=== PATIENT | female | born 1965 | race Caucasian/White ===

== ENCOUNTER 2017-04-21 14:45 | Emergency (ER) | payer SELFPAY ==
[~2017-04-21] VITALS: Ht 160 cm; Wt 68.5 kg
[~2017-04-21 14:45] MED LIST: DENIES; PRED20TA PO
[2017-04-21 14:54] VITALS: Ht 160 cm; Wt 68.5 kg
[2017-04-21 15:23] VITALS: BP 139/72
[2017-04-21 16:04] LABS: BASOPHILS % 0.6 % (0.0-2.0); EOSINOPHILS # 0.1 10^3/ul (0.0-0.5); EOSINOPHILS % 1.4 % (0.0-7.0); HEMATOCRIT 37.4 % (37.0-47.0); LYMPHOCYTES # 2.1 10^3/ul (0.8-2.9); MEAN CORPUSCULAR HEMOGLOBIN 26.4 pg (29.0-33.0); MEAN CORPUSCULAR HGB CONC 32.1 g/dl (32.0-37.0); MEAN CORPUSCULAR VOLUME 82.2 fl (82.0-101.0); MONOCYTE # 0.4 10^3/ul (0.3-0.9); MONOCYTES % 5.9 % (0.0-11.0); NEUTROPHIL # 4.6 10^3/ul (1.6-7.5); PLATELET COUNT 333 10^3/UL (140-415); RED BLOOD COUNT 4.55 10^6/ul (4.20-5.40); RED CELL DISTRIBUTION WIDTH 14.9 % (11.5-14.5); WHITE BLOOD COUNT 7.3 10^3/ul (4.8-10.8)
--- NOTE | 2017-04-21 16:17 | RADRPT ---
PROCEDURE: US Pelvis. CLINICAL INDICATION: Heavy vaginal bleeding. Lower pelvic pain. TECHNIQUE: The pelvis was evaluated with transabdominal sonography in the axial and sagittal plane s. COMPARISON: No prior study is available for comparison. FINDINGS: Uterus: 9.7 x 5.8 x 7.3 cm. Endometrium: 11.8 mm. Right ovary: 2.4 x 1.2 x 1.6 cm. Left ovary: 4.9 x 4.3 x 4.0 cm. Uterine masses: Multiple fibroids are present in the uterus with the largest measuring 2.5 cm in max imal diameter. Ovarian masses: The right ovary is normal. There is a left ovarian cyst measuring 4.3 x 3.4 x 3.3 cm . There are no internal echoes or septations. Color Doppler and pulsed Doppler sonography demonstrat e normal flow to the ovaries. Other pelvic masses: None. Free fluid: None. IMPRESSION: 1. Fibroids in the uterus with the largest measuring 2.5 cm. 2. Left ovarian cyst measuring 4.3 cm in maximal dimension, probably benign. Follow-up ultrasound i n 3 months is advised. 3. Otherwise unremarkable study. RPTAT: QQ .Zaire Rodríguez MD, MD Date Time Electronically viewed and signed by .Zaire Rodríguez MD, on 04/21/2017 16:17 .R/
[2017-04-21 16:20] LABS: ADD UMIC YES; UR ASCORBIC ACID NEGATIVE (NEGATIVE); UR BILIRUBIN (Dip) NEGATIVE (NEGATIVE); UR BLOOD (Dip) 3+ mg/dL (NEGATIVE); UR CLARITY SLIGHTLY CLOUDY (CLEAR); UR COLOR RED (YELLOW); UR GLUCOSE (Dip) NEGATIVE (NEGATIVE); UR KETONES (Dip) NEGATIVE (NEGATIVE); UR LEUKOCYTE ESTERASE (Dip) NEGATIVE Leu/ul (NEGATIVE); UR NITRITE (Dip) NEGATIVE (NEGATIVE); UR RBC > 182 /HPF (0-5); UR SPECIFIC GRAVITY (Dip) 1.009 (1.003-1.030); UR TOTAL PROTEIN (Dip) 1+ mg/dl (NEGATIVE); UR UROBILINOGEN (Dip) NEGATIVE (NEGATIVE)
[2017-04-21 16:20] LABS: ALBUMIN 4.3 g/dl (3.3-4.9); ALBUMIN/GLOBULIN RATIO 1.3; BILIRUBIN,INDIRECT 0.1 mg/dl (0-1.1); BILIRUBIN,TOTAL 0.1 mg/dl (0.2-1.3); CALCIUM 9.1 mg/dl (8.4-10.2); CREATININE 0.82 mg/dl (0.44-1.00); POTASSIUM 4.1 mmol/L (3.5-5.1); TOTAL PROTEIN 7.6 g/dl (6.1-8.1)
[2017-04-21] MEDS ORDERED: MEDR10TA2 PO (17:19)
--- NOTE | 2017-04-21 17:35 | ERD ---
ER Documentation Chief Complaint Date/Time DATE: 04/21/17 TIME: 17:32 Chief Complaint Pt presents with VB X 6 days. Not . HPI 51-year-old female patient with a past medical history of fibroids and hypertension presents to the ED complaining of vaginal bleeding that started 6 days ago. Her menstruation started 6 days ago and was minimal however started to have more vaginal bleeding with clots. Denies any pelvic pain, nausea, vomiting, diarrhea, chest pain, shortness of breath, wheezing, dizziness, headache, weakness. Denies any smoking, alcohol use, drug use. Denies any dysuria, urgency, frequency. ROS All systems reviewed and are negative except as per history of present illness. Medications Home Meds Active Scripts Medroxyprogesterone Acetate* (Provera*) 10 Mg Tablet, 10 MG PO DAILY, #5 TAB Prov:POOJA SADLER PA-C 04/21/17 Prednisone* (Prednisone*) 20 Mg Tab, 60 MG PO DAILY for 5 Days, TAB Prov:MARCUS KRAMER MD 12/18/15 Reported Medications [Denies] No Conflict Check 01/14/10 Allergies Allergies: Coded Allergies: No Known Drug Allergies (Verified Allergy, Mild, 01/14/10) PMhx/Soc History of Surgery: Yes (TUBAL LIGATION) Anesthesia Reaction: No Hx Neurological Disorder: No Hx Respiratory Disorders: No Hx Cardiac Disorders: Yes (HTN) Hx Psychiatric Problems: No Hx Miscellaneous Medical Probl: No Hx Alcohol Use: No Hx Substance Use: No Hx Tobacco Use: No Smoking Status: Never smoker Physical Exam Vitals Vital Signs Date Time Temp Pulse Resp B/P Pulse Ox O2 Delivery O2 Flow Rate FiO2 04/21/17 15:23 139/72 04/21/17 14:54 98.0 78 18 184/111 98 Physical Exam Const: [id number], well-nourished. In no acute distress. Head: Atraumatic, normocephalic Eyes: Normal Conjunctiva without injection. No purulent discharge. ENT: Normal external ear, nose. Moist oropharynx without tonsillar exudates. Non -erythematous pharynx. Uvula midline. No drooling. No trismus. Neck: No cervical midline tenderness. Full range of motion. No meningismus. No cervical lymphadenopathy. No JVD. Resp: Clear to auscultation bilaterally. No wheezing, rhonchi, rales, or crackles. No accessory muscle use. No retractions. Cardio: Regular rate and rhythm. No murmurs, rubs or gallops. Abd: Soft, nontender, non distended. Normal bowel sounds. No palpable masses. No rebound tenderness. No guarding. Negative McBurney's point. Negative psoas sign. Negative obturator sign. Skin: No petechiae or rashes Back: No midline tenderness. No CVA tenderness. Ext: No cyanosis, or edema. Neur: Awake and alert. Normal gait. Normal coordination. Psych: Normal Mood and Affect Result Diagram: 04/21/17 1550 04/21/17 1550 Results 24 hrs Laboratory Tests Test 04/21/17 15:50 04/21/17 15:59 White Blood Count 7.310^3/ul Red Blood Count 4.5510^6/ul Hemoglobin 12.0g/dl Hematocrit 37.4% Mean Corpuscular Volume 82.2fl Mean Corpuscular Hemoglobin 26.4pg Mean Corpuscular Hemoglobin Concent 32.1g/dl Red Cell Distribution Width 14.9% Platelet Count 94364^3/UL Mean Platelet Volume 10.0fl Neutrophils % 63.0% Lymphocytes % 29.0% Monocytes % 5.9% Eosinophils % 1.4% Basophils % 0.6% Nucleated Red Blood Cells % 0.0/100WBC Neutrophils # 4.610^3/ul Lymphocytes # 2.110^3/ul Monocytes # 0.410^3/ul Eosinophils # 0.110^3/ul Basophils # 0.010^3/ul Nucleated Red Blood Cells # 0.010^3/ul Sodium Level 140mmol/L Potassium Level 4.1mmol/L Chloride Level 106mmol/L Carbon Dioxide Level 26mmol/L Anion Gap 12 Blood Urea Nitrogen 14mg/dl Creatinine 0.82mg/dl Glucose Level 92mg/dl Calcium Level 9.1mg/dl Total Bilirubin 0.1mg/dl Direct Bilirubin 0.00mg/dl Indirect Bilirubin 0.1mg/dl Aspartate Amino Transf (AST/SGOT) 19IU/L Alanine Aminotransferase (ALT/SGPT) 29IU/L Alkaline Phosphatase 61IU/L Total Protein 7.6g/dl Albumin 4.3g/dl Globulin 3.30g/dl Albumin/Globulin Ratio 1.30 Urine Color RED Urine Clarity SLIGHTLY CLOUDY Urine pH 7.0 Urine Specific [place] 1.009 Urine Ketones NEGATIVEmg/dL Urine Nitrite NEGATIVEmg/dL Urine Bilirubin NEGATIVEmg/dL Urine Urobilinogen NEGATIVEmg/dL Urine Leukocyte Esterase NEGATIVELeu/ul Urine Microscopic RBC > 182/HPF Urine Microscopic WBC 5/HPF Urine Hemoglobin 3+mg/dL Urine Glucose NEGATIVEmg/dL Urine Total Protein 1+mg/dl Procedures/MDM 51-year-old female patient with no significant past medical history presents to the ED complaining of vaginal bleeding that started 6 days ago. Patient is afebrile and nontoxic-appearing. Patient's blood pressure was 184/111 at triage and was retaken to be 139/72. Patient's blood pressure was elevated (> 120/80) but appears stable without evidence of hypertension emergency or urgency. The patient was counseled about the risks of hypertension and urged to pursue outpatient monitoring and therapy within a week with their primary care physician. PROCEDURE: US Pelvis. CLINICAL INDICATION: Heavy vaginal bleeding. Lower pelvic pain. TECHNIQUE: The pelvis was evaluated with transabdominal sonography in the axial and sagittal planes. COMPARISON: No prior study is available for comparison. FINDINGS: Uterus: 9.7 x 5.8 x 7.3 cm. Endometrium: 11.8 mm. Right ovary: 2.4 x 1.2 x 1.6 cm. Left ovary: 4.9 x 4.3 x 4.0 cm. Uterine masses: Multiple fibroids are present in the uterus with the largest measuring 2.5 cm in maximal diameter. Ovarian masses: The right ovary is normal. There is a left ovarian cyst measuring 4.3 x 3.4 x 3.3 cm. There are no internal echoes or septations. Color Doppler and pulsed Doppler sonography demonstrate normal flow to the ovaries. Other pelvic masses: None. Free fluid: None. IMPRESSION: 1. Fibroids in the uterus with the largest measuring 2.5 cm. 2. Left ovarian cyst measuring 4.3 cm in maximal dimension, probably benign. Follow-up ultrasound in 3 months is advised. 3. Otherwise unremarkable study. Patient likely has dysfunctional uterine bleeding, fibroids, ovarian cyst noted on ultrasound. Low suspicion for symptomatic anemia, ectopic , STDs, sepsis, PID, appendicitis, ovarian torsion, tubo-ovarian abscess, surgical abdomen, or other emergent conditions. Discharge medications: Provera Patient to follow up with [facility] in 2 days for further evaluation and treatment. Patient is to return sooner to the ED for any worsening symptoms. Patient's questions were answered. Patient understood and agreed with discharge plan. Departure Diagnosis: Primary Impression: Vaginal bleeding Condition: Stable Patient Instructions: What Are Fibroids?, What Are Ovarian Cysts?, Dysfunctional Uterine Bleeding Referrals: [facility] YOU HAVE RECEIVED A MEDICAL SCREENING EXAM AND THE RESULTS INDICATE THAT YOU DO NOT HAVE A CONDITION THAT REQUIRES URGENT TREATMENT IN THE EMERGENCY DEPARTMENT. FURTHER EVALUATION AND TREATMENT OF YOUR CONDITION CAN WAIT UNTIL YOU ARE SEEN IN YOUR DOCTORS OFFICE WITHIN THE NEXT 1-2 DAYS. IT IS YOUR RESPONSIBILITY TO MAKE AN APPOINTMENT FOR FOLOW-UP CARE. IF YOU HAVE A PRIMARY DOCTOR --you should call your primary doctor and schedule an appointment IF YOU DO NOT HAVE A PRIMARY DOCTOR YOU CAN CALL OUR PHYSICIAN REFERRAL HOTLINE AT IF YOU CAN NOT AFFORD TO SEE A PHYSICIAN YOU CAN CHOSE FROM THE FOLLOWING [facility] [address] [facility] [address] [facility] [address] [facility] [address] [facility] [address] [facility]. [facility]. [address] [facility]. [facility] YOU HAVE RECEIVED A MEDICAL SCREENING EXAM AND THE RESULTS INDICATE THAT YOU DO NOT HAVE A CONDITION THAT REQUIRES URGENT TREATMENT IN THE EMERGENCY DEPARTMENT. FURTHER EVALUATION AND TREATMENT OF YOUR CONDITION CAN WAIT UNTIL YOU ARE SEEN IN YOUR DOCTORS OFFICE WITHIN THE NEXT 1-2 DAYS. IT IS YOUR RESPONSIBILITY TO MAKE AN APPOINTMENT FOR FOLOW-UP CARE. IF YOU HAVE A PRIMARY DOCTOR --you should call your primary doctor and schedule and appointment IF YOU DO NOT HAVE A PRIMARY DOCTOR YOU CAN CALL OUR PHYSICIAN REFERRAL HOTLINE AT . IF YOU CAN NOT AFFORD TO SEE A PHYSICIAN YOU CAN CHOSE FROM THE FOLLOWING [facility] INSTITUTIONS: [facility] [id number] [place] [address] [facility] [address] [place] [address] [facility] [address] [place] [address] [facility] [place] [address] [facility] [address] [place] [address] OFFICE FAX , [facility] [address] [place], [place] [id number], [place] [address] [place] [address] [address] GARCIA, [facility] [address] [facility], [address], [facility] [address] [address], [facility] [address] [facility], [place] [address] [facility] [address] [place] [address] [phone] [address] [facility], [facility] [address] - ARLETTE NICE [address], [facility] [address] [address] WARREN, [place] [address] [facility]. [address], [facility] [address] [address] [place], [place] [id number] [facility] Hours: 8:00 am - 5:00 pm Additional Instructions: FOLLOW UP WITH YOUR PRIMARY CARE PHYSICIAN TOMORROW for a referral to see an OB/ [employer] [employer] WE[employer] OPERATOR for further evaluation and treatment of your fibroids and ovarian cyst.Return to this facility if you are not improving as expected - fever, vomiting, worsening vaginal bleeding, worsening abdominal pain, etc. POOJA SADLER PA-C Apr 21, 2017 17:35
== END 2017-04-21 17:31 | disposition home or self-care (01) ==
LOC: FTE 14:45
DX: N93.9 Abnormal uterine and vaginal bleeding, unspecified (principal); I10 Essential (primary) hypertension; R10.2 Pelvic and perineal pain
CPT/HCPCS: 76856; 80053; 81001; 85025

== ENCOUNTER 2017-06-26 09:04 | Emergency (ER) | payer SELFPAY ==
[~2017-06-26] VITALS: Wt 68.0 kg
[~2017-06-26 09:04] MED LIST changes: +MEDR10TA2 PO
[2017-06-26] MEDS ORDERED: BEN25 PO (10:07)
[2017-06-26] MEDS ORDERED: NAPH15DR OP (10:08)
--- NOTE | 2017-06-26 10:28 | ERD ---
ER Documentation Chief Complaint Chief Complaint ITCHY/REDNESS ON RIGHT EYE X2 DAYS HPI This is a 51-year-old female who the emergency department today complaining of some right eye redness and itchiness. Patient states that Sunday she colored her hair and has had itching on the front of her forehead as well. States that she also swims in a pool at the gym and thinks it might be something from the chlorine. Denies any blurred vision, loss of vision. Denies any purulent drainage, foreign body. States she has not taken any medication. ROS All systems reviewed and are negative except as per history of present illness. Medications Home Meds Active Scripts Naphazoline Hcl/Phenir Mal (Naphcon-A Eye Drops) 15 Ml Drops, 15 ML OP Q6, #1 BOTTLE Prov:GUCCI CASIANO PA-C 06/26/17 Diphenhydramine Hcl* (Benadryl*) 25 Mg Cap, 25 MG PO Q6, #30 CAP Prov:GUCCI CASIANO PA-C 06/26/17 Medroxyprogesterone Acetate* (Provera*) 10 Mg Tablet, 10 MG PO DAILY, #5 TAB Prov:POOJA SADLER PA-C 04/21/17 Prednisone* (Prednisone*) 20 Mg Tab, 60 MG PO DAILY for 5 Days, TAB Prov:MARCUS KRAMER MD 12/18/15 Reported Medications [Denies] No Conflict Check 01/14/10 Allergies Allergies: Coded Allergies: No Known Drug Allergies (Verified Allergy, Mild, 01/14/10) PMhx/Soc History of Surgery: Yes (TUBAL LIGATION) Anesthesia Reaction: No Hx Neurological Disorder: No Hx Respiratory Disorders: No Hx Cardiac Disorders: Yes (HTN) Hx Psychiatric Problems: No Hx Miscellaneous Medical Probl: No Hx Alcohol Use: No Hx Substance Use: No Hx Tobacco Use: No Physical Exam Vitals Vital Signs Date Time Temp Pulse Resp B/P Pulse Ox O2 Delivery O2 Flow Rate FiO2 06/26/17 09:06 97.1 96 18 136/93 98 Physical Exam Const: NAD Head: Atraumatic Eyes: With conjunctival erythema. PERRLA. EOM intact. ENT: Normal External Ears, Nose and Mouth. Neck: Full range of motion..~ No meningismus. Resp: Clear to auscultation bilaterally Cardio: Regular rate and rhythm, no murmurs Abd: Soft, non tender, non distended. Normal bowel sounds Skin: Rash Frontal aspect of forehead and along hairline Neur: Awake and alert Psych: Normal Mood and Affect Procedures/MDM This is a 51-year-old female who presents emergency department today complaining of right eye redness and itching for the past 2 days. Patient indicated that Sunday she used some hair dyed colored her hair and since that time she has also had some itching along her forehead. Patient is afebrile and otherwise well-appearing. She denies any foreign body sensation or purulent drainage. I have low suspicion that this is bacterial conjunctivitis. Her symptoms at this time appear to be most likely allergy related. Visual acuity right eye 20/13 left eye 20/13 bilateral 2012 She denied any visual changes and I have low suspicion for acute narrow angle glaucoma, retinal detachment, hyphema, subconjunctival hemorrhage. Patient was given a prescription for Benadryl and Naphcon. I do not feel that she requires antibiotics at this time. At this time the patient is stable for discharge and outpatient management. Patient should follow up with their PCP in the next 1-2 days. They may return to the emergency department sooner for any persistent or worsening of symptoms. Patient understood and agreed with the plan. Departure Diagnosis: Primary Impression: Eye problem Condition: Fair Patient Instructions: Conjunctivitis, Non-Specific Referrals: [facility] YOU HAVE RECEIVED A MEDICAL SCREENING EXAM AND THE RESULTS INDICATE THAT YOU DO NOT HAVE A CONDITION THAT REQUIRES URGENT TREATMENT IN THE EMERGENCY DEPARTMENT. FURTHER EVALUATION AND TREATMENT OF YOUR CONDITION CAN WAIT UNTIL YOU ARE SEEN IN YOUR DOCTORS OFFICE WITHIN THE NEXT 1-2 DAYS. IT IS YOUR RESPONSIBILITY TO MAKE AN APPOINTMENT FOR FOL-UP CARE. IF YOU HAVE A PRIMARY DOCTOR --you should call your primary doctor and schedule an appointment IF YOU DO NOT HAVE A PRIMARY DOCTOR YOU CAN CALL OUR PHYSICIAN REFERRAL HOTLINE AT IF YOU CAN NOT AFFORD TO SEE A PHYSICIAN YOU CAN CHOSE FROM THE FOLLOWING [facility] [address] [facility] [address] [facility] [facility] [address] [facility] [address] [facility] [address] [facility]. [facility]. [address] Additional Instructions: Call your primary care doctor TOMORROW for an appointment during the next 1-2 days.See the doctor sooner or return here if your condition worsens before your appointment time. Use drops as prescribed and take Benadryl to help decrease itching GUCCI CASIANO PA-C Jun 26, 2017 10:28
== END 2017-06-26 10:14 | disposition home or self-care (01) ==
LOC: FTE 09:04
DX: H57.8 Other specified disorders of eye and adnexa (principal); I10 Essential (primary) hypertension
CPT/HCPCS: 99283

== ENCOUNTER 2018-04-23 15:27 | Emergency (ER) | END 2018-04-23 16:42 | disposition home or self-care (01) ==

== ENCOUNTER 2018-04-25 13:39 | Emergency (ER) | END 2018-04-25 15:29 | disposition home or self-care (01) ==